=== PATIENT | male | born 1970 | race African-American/Black ===

== ENCOUNTER 2021-03-18 20:15 | Emergency (ER) | payer SELFPAY ==
[2021-03-18 20:24] VITALS: BP 179/110; PULSE 91; RESP 24; TEMP 37; O2SAT 95
[2021-03-18] MEDS: FAMOTIDINE 20 MG/2 ML VIAL IV PUSH (20:30)
[2021-03-18] MEDS: methylPREDNISolone SOD SUCC 125 MG VIAL IV PUSH (20:30)
[2021-03-18] MEDS: diphenhydrAMINE HCl INJ 50 MG/ML VIAL IV PUSH (20:30)
--- NOTE | 2021-03-18 21:25 | ECG_ITS ---
Measurements Intervals [place] Rate: 80 P: 42 PA: 199 QRS: 31 QRSD: 93 T: 116 QT: 367 QTc: 426 Interpretive Statements SINUS RHYTHM CANNOT RULE OUT SEPTAL INFARCT, AGE INDETERMINATE ST-T WAVE ABNORMALITY IN HIGH LATERAL LEADS- CONSIDER ISCHEMIA BASELINE ARTIFACT- V3-V6 ABNORMAL ECG Electronically Signed On 03-19-2021 6:47:43 CDT by Benjamin Palomino D.O.
--- NOTE | 2021-03-18 21:41 | ED.GENADULT ---
HPI - General Adult General Chief complaint: Allergic Reaction Stated complaint: Tongue and Facial swelling ~ 1 hour Time Seen by Provider: 03/18/21 20:24 History of Present Illness HPI narrative: Patient is a 50-year-old gentleman who presents the emergency department with chief complaint of tongue swelling. Patient reports he has history of hypertension and is currently on lisinopril. Patient reports this evening he noticed his tongue started swelling up and had difficulty swallowing and difficulty talking. The patient states that days never had anything like this happen before the patient reports he is still able to breathe and has no shortness of breath just whenever he talks he feels as though his voice is not normal and also notices that his tongue is massively swollen compared to normal. Related Data Allergies Allergy/AdvReac Type Severity Reaction Status Date / Time shellfish derived Allergy Anaphylaxis Verified 03/18/21 20:29 Review of Systems Review of Systems: Narrative: A 10 system review of systems was completed on the patient and is negative except for what is stated in the HPI. Nursing and ancillary documentation was reviewed. PMFSH Comments Past medical significant for hypertension and cardiac disease with stent placement Social history patient denies illicit drug use Exam Narrative: Exam Narrative: GENERAL: Well-appearing, well-nourished, and in no acute distress. HEAD: Normocephalic, atraumatic. EYES: PERRLA and EOMI. ENT: Nares clear, no rhinorrhea or epistaxis. Mucous membranes moist. There is significant swelling of the tongue NECK: Supple. CHEST: Clear to auscultation. No respiratory distress. HEART: Regular rate and rhythm. No murmur heard. Normal peripheral pulses. ABDOMEN: Soft, nontender, nondistended, normal active bowel sounds. EXTREMITIES: Normal range of motion. No edema. SKIN: Warm, dry, no rash. NEURO: No focal deficits. Alert and oriented x3. PSYCH: Normal mood and affect. Course Vital Signs Vital signs: Vital Signs Temperature 37.0 C 03/18/21 20:24 Pulse Rate 91 03/18/21 20:24 Respiratory Rate 24 H 03/18/21 20:24 Blood Pressure 179/110 H 03/18/21 20:24 Pulse Oximetry 95 03/18/21 20:24 Temperature 37.0 C 03/18/21 20:24 Pulse Rate 67 03/19/21 00:39 Respiratory Rate 18 03/19/21 00:39 Blood Pressure 188/108 H 03/19/21 00:39 Pulse Oximetry 93 03/19/21 00:39 Medical Decision Making Vital Signs Vital Signs: Vital Signs Temperature 37.0 C 03/18/21 20:24 Pulse Rate 91 03/18/21 20:24 Respiratory Rate 24 H 03/18/21 20:24 Blood Pressure 179/110 H 03/18/21 20:24 Pulse Oximetry 95 03/18/21 20:24 Temperature 37.0 C 03/18/21 20:24 Pulse Rate 67 03/19/21 00:39 Respiratory Rate 18 03/19/21 00:39 Blood Pressure 188/108 H 03/19/21 00:39 Pulse Oximetry 93 03/19/21 00:39 Discharge Plan Discharge Clinical Impression: REBECCA inhibitor-aggravated angioedema Qualifiers: Encounter type: initial encounter Qualified Code(s): T78.3XXA - Angioneurotic edema, initial encounter Patient Disposition: Home, Self-Care Condition: Stable Instructions: Antibiotic Form, Angioedema (ED) Additional Instructions: Please discontinue taking your lisinopril. We will start you on hydrochlorothiazide until you can see your regular doctor for additional blood pressure adjustments. Prescriptions: New hydrochlorothiazide 25 mg tablet 25 mg PO DAILY Qty: 30 RF: 0 prednisone 20 mg tablet 40 mg PO DAILY 5 Days Qty: 10 RF: 0 Follow-up/Referrals: Cr Antoine MD [Physician] - PHYSICIAN,TUFTING CREELER [Primary Care Provider] - Time of Disposition: 00:57
[2021-03-18 21:44] VITALS: BP 162/93; PULSE 83; RESP 19; O2SAT 96
[2021-03-18 21:45] VITALS: O2SAT 96
[2021-03-18 22:59] VITALS: BP 166/84; PULSE 71; RESP 21; O2SAT 100
[2021-03-19 00:39] VITALS: BP 188/108; PULSE 67; RESP 18; O2SAT 93
[2021-03-19 01:35] VITALS: BP 167/102; PULSE 75; RESP 19; O2SAT 96
== END 2021-03-19 01:38 | disposition home or self-care (01) ==
PROVIDERS: Emergency Provider Emergency Medicine
DX: T78.3XXA Angioneurotic edema, initial encounter (principal); T46.4X5A Adverse effect of angiotensin-converting-enzyme inhibitors, initial encounter; I11.9 Hypertensive heart disease without heart failure; Z95.5 Presence of coronary angioplasty implant and graft; R94.31 Abnormal electrocardiogram [ECG] [EKG]
CPT/HCPCS: 93005; 96374; 96375; 99284; J1200; J2930